=== PATIENT | female | born 1945 | race Caucasian/White ===

== ENCOUNTER 2016-11-12 06:08 | Inpatient (IN) | payer OTHER ==
[~2016-11-12] VITALS: Ht 157.5 cm; Wt 64.4 kg
[~2016-11-12 06:08] MED LIST: ACCUPRIL20 MG PO; FLOVENT DISKU100 MCG INH; HCTZ; PROAIR HFA8.5 GM INH; QUINAPRIL
[2016-11-12] MEDS ORDERED: ASPIRIN EC325 M2 PO (10:01)
[2016-11-12] MEDS ORDERED: DILAUDID2 M1 PO (10:01)
[2016-11-12] MEDS ORDERED: MIRALAX17 G1 PO (10:01)
[2016-11-12] MEDS ORDERED: MS CONTIN15 M2 PO (10:01)
[2016-11-12] MEDS ORDERED: COLACE100 M1 PO (10:01)
--- NOTE | 2016-11-12 10:06 | Patient Discharge Instructions ---
Discharge Instructions General Discharge Information You were seen/treated for: Right hip pain related to unilateral primary osteoarthritis You had these procedures: Right total hip replacement Watch for these problems: Increasing pain despite the use of pain medication. Increasing redness, warmth, swelling. Drainage of any type from incision. Inability to bear weight on operative leg. Persistent nausea and vomitting. Fever greater than 101.5 degrees. Do not soak the wound: Yes No bath, but you may shower: Yes Other wound care: Keep wound clean and dry. Your dressing will be changed on the second day following your surgery by nursing. Daily dry dressing changes recommend thereafter. No ointments or lotions of any type on or near incision at any time. No exceptions. Special Instructions: Aspirin: You are taking aspirin to help prevent the development of blood clots. You will be taking it twice a day. Please take this as directed for four weeks. Please take with food to help protect your stomach. Constipation: Pain medications can be very constipating. You have been given a prescription for colace and miralax. Please take this as directed. In the event that you run out of these medications, they are available over the counter. You may discontinue these medications if you develop loose stool or diarrhea. If you are unable to move your bowels for several days, or if you have not passed any gas, please contact your doctor. Diet Continue normal diet: Yes Recommended Diet: Regular Additional DIET Information: Advance as tolerated Activity Full Activity/No Limits: No Activity Self Limited: Yes Pounds, do NOT lift more than: 10 Activity Limited to: Weight bear as tolerated Acute Coronary Syndrome Inclusion Criteria At DC or during hospital stay patient has or had the following: ACS DIAGNOSIS No Discharge Core Measures Meds if any: Prescribed or Continued at Discharge Meds if any: NOT Prescribed or Continued at Discharge Congestive Heart Failure Inclusion Criteria At DC or during hospital stay patient has or had the following: CHF DIAGNOSIS No Discharge Core Measures Meds if any: Prescribed or Continued at Discharge Meds if any: NOT Prescribed or Continued at Discharge Cerebrovascular accident Inclusion Criteria At DC or during hospital stay patient has or had the following: CVA/TIA Diagnosis No Discharge Core Measures Meds if any: Prescribed or Continued at Discharge Meds if any: NOT Prescribed or Continued at Discharge Venous thromboembolism Inclusion Criteria VTE Diagnosis No VTE Type NONE VTE Confirmed by (Test) NONE Discharge Core Measures - Per Current guidelines, there needs to be overlap - treatment for the first 5 days of Warfarin therapy. - If discharged on Warfarin prior to 5 days of - overlap therapy, the patient will need to be - assessed for post discharge needs including - *Post discharge parental anticoagulation - *Warfarin and/or parental anticoagulation education - *Follow up date to check INR post discharge At least 5 days overlap therapy as Inpatient No Meds if any: Prescribed or Continued at Discharge Note: Overlap Therapy is Warfarin and Anticoagulant Meds if any: NOT Prescribed or Continued at Discharge
--- NOTE | 2016-11-12 10:07 | Admission Core Measures ---
Admission Meds I reviewed the following Meds: Current Medications Sig/Luma Start time Last Medication Dose Stop Time Status Admin Acetaminophen 975 MG ONCE 11/12 0000 NR (Tylenol) 11/12 235 Albuterol Sulfate 2 PUF Q4-6 PRN PRN 11/12 0900 AC (Ventolin) Cefazolin Sodium 2,000 MG ONCE 11/12 0000 NR (Kefzol-Ancef Inj) 11/12 235 Fluticasone 2 PUF BID 11/12 1000 AC Propionate (Flovent) Lisinopril 20 MG DAILY 11/12 1000 AC (Prinivil) Oxycodone HCl 10 MG ONCE 11/12 0000 AC (Roxicodone) 11/12 235 Acute Coronary Syndrome Inclusion Criteria ACS Diagnosis No Inpatient Core Measures LDL Reminder: If No, please order W/I first 24hr of stay Congestive Heart Failure Inclusion Criteria CHF Diagnosis No Cerebrovascular accident Inclusion Criteria CVA/TIA Diagnosis No Inpatient Core Measures Bedside Swallow Eval Reminder: If BSE failed, place ST order Antithrombotic Reminder: Order Antithrombotic Medication by end of day 2 Antithrombotic Reminder: Document Reason Antithrombotic Not ordered by end of day 2 AFIB/Flutter Reminder: If Present, add to problem list AFIB/Flutter Reminder: Order Anticoag Medication for pts with AFIB/Flutter Atherosclerosis Reminder: If Present, add to problem list LDL Reminder: If No, please order W/I first 24hr of stay PT Order Reminder: If No, please order Venous thromboembolism Inpatient Core Measures VTE Risk Factors: Age > 40, [facility] prophylaxis d/t No contraindications No VTE Pharm Prophylaxis d/t No contraindications Inclusion Criteria - Per Current guidelines, there needs to be overlap - treatment for the first 5 days of Warfarin therapy. - Parenteral Anticoagulation (IV or SC) needs to be - given along with Warfarin therapy. VTE Diagnosis No VTE Type NONE VTE Confirmed by (Test) NONE Problem List As ranked by this Provider includes Assessment & Plan 1. Unilateral primary osteoarthritis, right hip HOME MEDS Home Med List Albuterol Sulfate (Proair Hfa) 90 MCG HFA.AER.AD 2 PUF INH Q4-6 PRN PRN ASTHMA (Reported) Aspirin (Ecotrin*) 325 MG TABLET.DR 1 TAB PO BID ANTICOAGULATION Docusate Sodium (Colace) 100 MG CAPSULE 1 CAP PO BID CONSITPATION Fluticasone Propionate (Flovent Diskus) 100 MCG BLST.W.DEV 1 PUF INH BID ASTHMA (Reported) Hydromorphone HCl (Dilaudid) 2 MG TABLET 1-2 TAB PO Q4-6 PRN PAIN Morphine Sulfate (Ms Contin) 15 MG TABLET.ER 1 TAB PO BID PAIN Polyethylene Glycol 3350 (Miralax) 17 GRAM POWD.PACK 1 PAC PO DAILY CONSTIPATION Quinapril HCl (Accupril) 20 MG TABLET 1 TAB PO DAILY HTN (Reported)
--- NOTE | 2016-11-12 10:09 | Surgical Discharge Summary ---
Visit Information Visit Dates Admission Date: 11/12/16 Discharge Date: 11/12/16 History of Present Illness Chief Complaint: Right hip pain secondary to unilateral primary osteoarthritis Medical History Isolation History: Standard Surgical History Pertinent Surgical History: non-contributory Review of Systems: See H&P Hospital Course Course Attending Physician: SHAAN YANG MD Primary Care Physician: CYNTHIA CALHOUN,CRISTOPHER [facility] Hospital Course: Patient was admitted to the hospital on 11/12/2016 for an elective total joint replacement. The procedure was tolerated well and the patient was transferred to a general surgical floor. There, the patient's diet was advanced and tolerated, the patient voided spontaneously, and was evaluated and treated by physical therapy. At the time of hospital discharge, vital signs were stable and within normal limits, neurovascular status was intact, and pain was controlled with the use of oral pain medication. Allergies: Coded Allergies: Sulfa (Sulfonamide Antibiotics) (Severe, ANAPHYLAXIS 11/08/16) Disposition Summary Disposition Principal Diagnosis: Right hip unilateral primary osteoarthritis Additional Diagnosis: none Discharge Disposition: home health services Discharge Instructions General Discharge Information Code Status: Full Code Patient's Diet: Regular, advance as tolerated Patient's Activity: WBAT Follow-Up Instructions/Appts: Follow up with DR. Yang in 6 weeks from date of surgery. Please call office to arrange and or confirm this appointment. Medications at Discharge Discharge Medications: Continue taking these medications: Fluticasone Propionate (Flovent Diskus) 100 MCG BLST.W.DEV 1 Puff Inhale through mouth TWICE DAILY Albuterol Sulfate (Proair Hfa) 90 MCG HFA.AER.AD 2 Puff Inhale through mouth EVERY 4-6 HOURS NEEDED as needed for ASTHMA Quinapril HCl (Accupril) 20 MG TABLET 1 Tablet ORAL DAILY Start taking the following new medications: Aspirin (Ecotrin*) 325 MG TABLET.DR 1 Tablet ORAL TWICE DAILY Qty = 60 No Refills Docusate Sodium (Colace) 100 MG CAPSULE 1 Capsule ORAL TWICE DAILY Qty = 14 No Refills Instructions: DISCONTINUE USE IF YOU DEVELOP LOOSE STOOL OR DIARRHEA Polyethylene Glycol 3350 (Miralax) 17 GRAM POWD.PACK 1 Packet ORAL DAILY Qty = 7 No Refills Instructions: dissolve in water, DISCONTINUE USE IF YOU DEVELOP LOOSE STOOL OR DIARRHEA Hydromorphone HCl (Dilaudid) 2 MG TABLET 1-2 Tablet ORAL EVERY 4-6 HOURS as needed for PAIN Qty = 36 No Refills Morphine Sulfate (Ms Contin) 15 MG TABLET.ER 1 Tablet ORAL TWICE DAILY Qty = 6 No Refills
--- NOTE | 2016-11-12 10:10 | RADIOLOGY REPORT ---
EXAMINATION: XR HIP, RIGHT CLINICAL INFORMATION: Post right hip replacement COMPARISON: None TECHNIQUE: Two views of the right hip. FINDINGS: Evidence of right hip replacement. No opaque cement demonstrated. On the views available the alignment appears within normal limits. There is no evidence of an acute fracture. There is soft tissue gas consistent with recent surgery. IMPRESSION: No evidence of immediate complication following right hip replacement.
--- NOTE | 2016-11-12 11:40 | PN- Orthopedic ---
Subjective Subjective: POSTOP CHECK some nausea, no vomiting. ambulated with PT from stretcher to chair. anesthesia still on board, lack of feeling in RLE. No CP/SOB Objective Vital Signs and I&Os NR Physical Exam: GEN: NAD CARD: S1S2 RRR PULM: no audible wheeze EXT: RLE: dressing cdi, +toe movement, limited plantar/dorsi flexion- anesthesia still on board. calves soft nt bl Current Medications: Current Medications Sig/Luma Start time Last Medication Dose Route Stop Time Status Admin Acetaminophen 0 .STK-MED ONE 11/12 729 DC PO Acetaminophen 975 MG ONCE 11/12 0000 NR PO 11/12 235 Albuterol Sulfate 2 PUF Q4-6 PRN PRN 11/12 0900 AC INH Cefazolin Sodium 2,000 MG ONCE 11/12 0000 NR IV 11/12 235 Fluticasone 2 PUF BID 11/12 1000 AC Propionate INH Lisinopril 20 MG DAILY 11/12 1000 AC PO Oxycodone HCl 0 .STK-MED ONE 11/12 729 DC PO Oxycodone HCl 10 MG ONCE 11/12 0000 AC PO 11/12 2359 Assessment/Plan Assessment/Plan A: POD0 sp R DENISA, anesthesia still on board, stable. P: OOB w PT, WBAT prn pain meds DVT ppx- ASA BID advance diet as tolerated DC planning. Core Measures/Miscellaneous Venous Thromboembolism VTE Risk Factors: Surgery VTE Contraindications: No Contraindications VTE Diagnosis: No VTE Type: NONE VTE Confirmed by (Test): NONE Beta Agustín Is Beta Agustín a Home Med? No Antibiotics Is Patient on Antibiotics? Yes If Yes: prophylaxis
[2016-11-12 13:02] VITALS: BP 104/70
[2016-11-12 15:12] VITALS: BP 110/70
--- NOTE | 2016-11-12 16:34 | Operative Report ---
Operative/Inv Procedure Report Surgery Date: 11/12/16 Name of Procedure: Right total hip replacement Pre-Operative Diagnosis: Primary right hip DJD Post-Operative Diagnosis: Same Estimated Blood Loss: 250 Surgeon/Epic Ambulatory Analysts: CELIA CALHOUN,SHAAN Karimi Anesthesia: general endotracheal tube, block Operative/Procedure Note Note: Description of Procedure: The patient was taken to the operating room and positively identified. After induction of spinal and general anesthesia and administration of appropriate pre -operative antibiotics, the patient was positioned supine on the operating room table and all bony prominences were well padded. After performing a surgical timeout, the right lower extremity was prepped and draped in the usual sterile fashion. A direct anterior approach was made to the right hip. The incision was carried sharply through superficial soft tissues to the level of the fascia. Meticulous hemostasis was maintained with Bovie electocautery. The fascia over the tensor fascia hal muscle was opened sharply and the interval between the TFL and the sartorius was entered bluntly taking care to stay lateral to the lateral femoral cutaneous nerve. Retractors were placed around the femoral neck and the pericapsular fat was identified. The ascending branches of the lateral femoral circumflex vessels were identified and carefully coagulated. The pericapsular fat and anterior capsule were then resected. A napkin ring osteotomy was performed and the femoral head was removed without difficulty. Attention was then turned to the acetabulum. After appropriate placement of retractors, the acetabulum was exposed. Soft tissue was cleaned from the acetabular margin and notch. Overhanging osteophytes were removed and the teardrop was exposed. The acetabulum was then sequentially reamed to accept a 58 mm Mesa Tritanium hemispherical solid back shell. This was impacted into place in the appropriate position and fitted with a 36 mm Trident X3 zero degree polyethylene insert. Attention was then turned to the femur. After performing the appropriate ligament releases, the proximal femur was exposed. It was then sequentially broached to accept a size #4 132 Mesa Accolade 2 stem. This was trialed for leg length and stability. The trial component was removed and the final component was impacted into place. The trunnion was carefully cleaned and fit with a 36 mm, +0 Biolox delta ceramic femoral head. The hip was reduced and put through a full range of motion and found to be stable. The articular space was then irrigated with sterile saline. The periarticular soft tissues were infilitrated with Marcaine. The fascial layer was closed with interrupted #1 vicryl suture and the skin was re-approximated with interrupted 2 -0 vicryl. The skin was closed with a running 3-0 V-Lock suture. Steri-strips and a sterile dressing were applied. The patient was awakened and taken to the recovery room in satisfactory condition.
[2016-11-12 17:09] VITALS: BP 112/70
== END 2016-11-12 18:45 | disposition home health service (06) | DRG 470 ==
LOC: SDA 06:08 → ENRESERV 09:37 → ENTRNSPT 11:06 → EDTRNSPTSTS 11:15 → 2NB 11:36 → CMPTRNSPT 11:45 → ENPENDDIS 12:59 → 2NB 18:45
PROVIDERS: ADMIT Orthopaedic Surgery
PROC: 0SR904A Replacement of Right Hip Joint with Ceramic on Polyethylene Synthetic Substitute, Uncemented, Open Approach (ICD-10-PCS; principal; 2016-11-12)
DX: M16.11 Unilateral primary osteoarthritis, right hip (principal); I10 Essential (primary) hypertension; E78.5 Hyperlipidemia, unspecified; J45.909 Unspecified asthma, uncomplicated
CPT/HCPCS: 2NBSP; 73502-RT; 88304; 97110-GO; 97116-GO; 97161-GP; 97530-GO; J0131; J0690; J0735; J2405; J2550; J3250; J3490; J7042